=== PATIENT | female | born 1960 ===

== ENCOUNTER 2019-08-17 18:25 | Emergency (ER) | payer SELFPAY ==
[~2019-08-17] VITALS: Ht 165.1 cm; Wt 60.0 kg
[2019-08-17 18:37] VITALS: BP 173/87
--- NOTE | 2019-08-17 18:44 | NUR ---
PT BIB EMS FOR INCREASED WEAKNESS, N/T IN LOWER LEGS. PT STATES SHE HAS MASSEY, FELT NUMBNESS IN LOWER LEGS, STRENGTH DECREASED, WAS UNABLE TO STAND AT HOME. PT DENIES FALL OR INJURY. PT VSS STABLE. SENSATION INTACT. STRENGTH WEAK, UNABLE TO PUSH FOR DORSI OR PLANTAR FLEXION
[2019-08-17] MEDS ORDERED: CARI3CAP PO (18:54)
[2019-08-17] MEDS ORDERED: OMEP20TA62 PO (18:54)
[2019-08-17] MEDS ORDERED: LORA10TA62 PO (18:54)
[2019-08-17] MEDS ORDERED: [UNRECOGNIZED DRUG - OTHER] (18:54)
[2019-08-17 19:07] LABS: BASOPHILS # (AUTO) 0.03 x10^3/uL (0-0.1); BASOPHILS % (AUTO) 0 % (0-1); EOSINOPHILS # (AUTO) 0.15 x10^3/uL (0-0.4); EOSINOPHILS % (AUTO) 2 % (1-7); LYMPHOCYTES # (AUTO) 2.67 x10^3/uL (1-3.4); LYMPHOCYTES % (AUTO) 37 % (22-44); MD NO; MEAN CORPUSCULAR HEMOGLOBIN 30.4 pg (27.0-34.8); MEAN CORPUSCULAR HGB CONC 32.8 g/dL (32.4-35.8); MEAN CORPUSCULAR VOLUME 92.7 fL (80-100); MEAN PLATELET VOLUME 9.1 fL (7.4-10.4); MONOCYTES # (AUTO) 0.63 x10^3/uL (0.2-0.8); MONOCYTES % (AUTO) 9 % (2-9); NEUTROPHILS % (AUTO) 52 % (42-75); PLATELET COUNT 284 x10^3/uL (130-400); RED BLOOD COUNT 4.32 x10^6/uL (3.82-5.3); RED CELL DISTRIBUTION WIDTH 12.9 % (9.6-15.2)
[2019-08-17 19:12] LABS: ALANINE AMINOTRANSFERASE 28 U/L (12-78); ALBUMIN 3.5 g/dL (3.4-5.0); ANION GAP 2 mmol/L (5-15); CALCIUM 9.1 mg/dL (8.5-10.1); CHLORIDE 114 mmol/L (98-107); CREATININE 1.03 mg/dL (0.55-1.02)
[2019-08-17 19:14] LABS: ALKALINE PHOSPHATASE 79 U/L (45-117); BILIRUBIN,TOTAL 0.2 mg/dL (0.2-1.0); TOTAL PROTEIN 6.9 g/dL (6.4-8.2)
--- NOTE | 2019-08-17 19:59 | NUR ---
MD AT BEDSIDE DISCUSSING POC FOR DC
--- NOTE | 2019-08-17 20:04 | NUR ---
Patient/Caregiver given discharge instructions and they have confirmed that they understand the instructions. Patient ambulatory with steady gait.
--- NOTE | 2019-08-17 20:28 | NUR ---
PT AMBULATED W [facility]
--- NOTE | 2019-08-17 20:29 | NUR ---
Patient/Caregiver given discharge instructions and they have confirmed that they understand the instructions. Patient ambulatory with steady gait.
== END 2019-08-17 20:31 | disposition home or self-care (01) ==
LOC: ED 19:00
DX: M62.81 Muscle weakness (generalized) (principal); I10 Essential (primary) hypertension; R51 Headache; R11.10 Vomiting, unspecified; R42 Dizziness and giddiness; F17.210 Nicotine dependence, cigarettes, uncomplicated
CPT/HCPCS: 36415; 70450; 80053; 83735; 85025; 99284